=== PATIENT | female | born 1945 | race Caucasian/White ===

== ENCOUNTER 2018-08-18 07:35 | Outpatient (CLI) | payer MEDICARE, OTHER ==
--- NOTE | 2018-08-18 08:59 | MRI ---
Exam: Left hip MRI without IV contrast: HISTORY: Avascular necrosis, hip arthritis, bilateral hip pain FINDINGS: Multiplanar, multisequence MRI examination of the left hip is performed. Marked left hip joint arthrosis with joint space loss and marked subchondral cystic changes of the larios perior acetabulum and superior femoral head. There is some subtle probably reactive marrow signal within the femoral neck. There are some femoral head osteophytes. Mild subchondral cystic changes of the right hip joint and associated joint space loss. Gluteus mediu s and gluteus minimus minimus tendon insertions appear unremarkable. No abnormal signal within the trochanteric bursal region. Common hamstring tendon insertion ranges are unremarkable. IMPRESSION: Left hip joint space narrowing with extensive subchondral cystic changes of the superior acetabulum a s well as the superior femoral head most evident for extensive degenerative subchondral cysts. I feel that these changes would be very unlikely to represent typical avascular necrosis. Right-sided h ip joint arthrosis with minimal subchondral cystic changes but less severe than on the left side. No evidence for other significant acute internal derangement.
--- NOTE | 2018-08-18 09:36 | MRI ---
MRI LUMBAR SPINE WITHOUT CONTRAST: HISTORY: M54.16, lumbar radiculopathy. COMPARISON: Lumbar spine MRI 2016. FINDINGS: No retroperitoneal adenopathy. The aortic contour is nonaneurysmal. No hydronephrosis. Gallbladder is unremarkable. The conus medullaris terminates near the inferior end plate of L1. No marrow infiltrative process. Superior end plate invagination of disk material at L4. Levels are as follows: L1-2: Relatively normal disks. Mild facet arthrosis. No neural foraminal or spinal canal narrowing . L2-3: There is a low-grade circumferential disk bulge worse in the left subarticular and subforamina l zones. Moderate left and right facet arthrosis. Mild bilateral neural foraminal narrowing. L3-4: Advanced degenerative disk space height loss. Circumferential disk-osteophyte complex greates t in the right subarticular and subforaminal zone. Moderate to severe right-sided neural foraminal n arrowing with abutment of the exiting nerve root. Moderate left neural foraminal narrowing. Mild in creased posterior epidural fat. The spinal canal measures approximately 8 mm. L4-5: Circumferential disk height loss with disk-osteophyte complex greatest in the left subarticula r and subforaminal zone. Moderate facet arthrosis. Moderate left-sided neural foraminal narrowing. Mild right-sided neural foraminal narrowing. Spinal canal not narrowed. L5-S1: Mild degenerative disk space height loss. There is an area of susceptibility at the anterior disk. There is an asymmetric left posterior disk bulge. Mild left-sided neural foraminal narrowing . IMPRESSION: Mild to moderate multilevel spondylosis as described. This has minimal progression from 2016. POS: TPC
== END 2018-08-18 07:36 | disposition home or self-care (01) ==
LOC: SCSMRI 07:35
PROVIDERS: ATTEND Anesthesiology Pain Medicine
DX: M47.26 Other spondylosis with radiculopathy, lumbar region (principal); M87.052 Idiopathic aseptic necrosis of left femur; M16.11 Unilateral primary osteoarthritis, right hip
CPT/HCPCS: 72148

== ENCOUNTER 2018-09-14 12:30 | Outpatient (CLI) | payer MEDICARE, OTHER ==
[2018-09-14 15:01] LABS: Bilirubin Negative (Negative); Blood, Urine Negative (Negative); Clarity CLEAR (Clear); Glucose, Urine (Dipstick) Negative (Negative); Leukocyte Trace (Negative); Nitrite Positive (Negative); Protein, Urine (Dipstick) Negative (Neg-Trace); Specific Gravity, Urine 1.014 (1.002-1.036); Urobilinogen 0.2 mg/dL (0.2-1.0); pH, Urine 5.5 (5.0-9.0)
[2018-09-14 15:06] LABS: Bacteria/HPF 4+ HPF (None Seen); Hyaline Casts/LPF 0-3 HYALINE CAST LPF (0-3 Hyaline); Pathc Cast-AUWi Flag 0.27 (0-2.49); Squamous Epithelial 0-3 HPF (0-3)
[2018-09-14 15:17] LABS: RBC/HPF None Seen HPF (0-3)
--- NOTE | 2018-09-20 14:38 | EKG ---
Test Reason : Blood Pressure : / mmHG Vent. Rate : 060 BPM Atrial Rate : 060 BPM P-R Int : 180 ms QRS Dur : 076 ms QT Int : 428 ms P-R-T Axes : 000 042 -04 degrees QTc Int : 428 ms Unusual P axis, possible ectopic atrial rhythm Anteroseptal infarct , age undetermined cannot be excluded Abnormal ECG Confirmed by ANDREWS COLLAZO ([id number]) on 09/20/2018 2:37:47 PM Referred By: LACY Confirmed By:ANDREWS COLLAZO
== END 2018-09-14 12:31 | disposition home or self-care (01) ==
LOC: LABBT 12:30
PROVIDERS: ATTEND Orthopaedic Surgery
DX: Z01.818 Encounter for other preprocedural examination (principal); M16.12 Unilateral primary osteoarthritis, left hip
CPT/HCPCS: 81001; 87077; 87081; 87086; 87186; 93005; 93010

== ENCOUNTER 2018-09-14 13:30 | Inpatient (IN) | payer MEDICARE, OTHER ==
[2018-09-14 12:49] VITALS: BMI 24.6
[2018-09-14 15:02] LABS: #Basophils 0.1 thou/uL (0.0-0.2); #Eosinphils 0.4 thou/uL (0.0-0.7); #Lymphocytes 2.8 thou/uL (1.20-3.40); #Monocytes 0.6 thou/uL (0.11-0.59); #Neutrophils 3.3 thou/uL (1.40-6.50); %Basophils 1.2 % (0.0-1.0); %Lymphocytes 39.5 % (21.0-51.0); %Monocytes 8.1 % (0.0-10.0); %Neutrophils 46.1 % (42.0-75.0); Hemoglobin 14.4 g/dL (12.0-16.0); Mean Corpuscular HGB CONC 33.5 g/dL (32.0-36.0); Mean Corpuscular Hemoglobin 32.2 pg (27.0-31.0); Mean Corpuscular Volume 96.1 fL (78.0-98.0); Platelet Count 234 thou/uL (130-400); RBC Distribution Width 11.9 % (11.5-14.5); Red Blood Cell (RBC) Count 4.47 mill/uL (4.20-5.40); White Blood Cell (WBC) Count 7.1 thou/uL (4.8-10.8)
--- NOTE | 2018-09-14 15:02 | HP ---
HISTORY OF PRESENT ILLNESS: The patient is a 73-year-old female with several year history of progressive left hip pain without injury. The pain has become much worse recently, especially over the past several months. She has groin pain which is worse with weightbearing. She reports a grinding and giving way sensation. She has difficulty getting dressed, getting in and out of a car, walking, and sleeping. She has had no relief with anti-inflammatory medications, lifestyle adjustments, and previous cortisone injections. PAST MEDICAL HISTORY: The patient has history of hypertension, anxiety, reflux, hyperlipidemia, and previous atrial fibrillation treated with medications. She has had no further cardiac problems. She did obtain cardiac clearance prior to vaginal surgery [address] Anaya, since had no further problems and had been totally asymptomatic from a cardiac standpoint. Dr. Mayberry was felt that no further cardiac workup is indicated and she has been seen and cleared for surgery. Past history as noted above. The patient has also had previous hysterectomy, double mastectomy. CURRENT MEDICATIONS: Include; 1. Estriol. 2. Vitamin D. 3. Potassium. 4. Coenzyme Q. 5. Krill oil. 6. Lutein. 7. Turmeric. 8. Vitamin B6. 9. Lysine. 10. Vitamin E. 11. Omeprazole. 12. Lisinopril. ALLERGIES: SHE IS ALLERGIC TO DARVOCET, MYCIN ANTIBIOTICS, SEREVENT DISKUS, RED YEAST RICE, AND CRESTOR. FAMILY HISTORY: Otherwise unremarkable. SOCIAL HISTORY: Otherwise unremarkable. REVIEW OF SYSTEMS: Otherwise unremarkable. PHYSICAL EXAMINATION: GENERAL: Reveals a healthy female. HEENT: Unremarkable. NECK: Supple. CHEST: Clear. HEART: Regular rate and rhythm. ABDOMEN: Soft, nontender. PELVIC: Deferred. RECTAL: Deferred. BREASTS: Deferred. EXTREMITIES: Pertinent findings in the left hip. The left leg is 1 cm short. There is tenderness in the greater trochanter and over the anterior hip. There is a left antalgic gait. There is decreased range of motion of the left hip and groin pain with internal rotation and crepitus with range of motion. NEUROVASCULAR: Intact. Pulses are 1+. IMAGING DATA: MRI scan of the left hip reveal severe degenerative changes with mild degenerative changes of the right hip. X-rays of the left hip reveal severe DJD of the left hip, but no joint space remaining. MRI scan of the lumbar spine reveals [id number] multiple level spondylosis, but no definite nerve root or spinal cord impingement. IMPRESSION: 1. Degenerative arthritis, left hip. 2. History of hypertension. PLAN: Left total hip replacement. The nature of the surgery, length recovery, potential complications such as infection, loss of motion, incomplete relief, neurovascular injury, thromboembolic phenomena, leg-length discrepancy, possible transfusion, need for revision have been discussed in detail. Job ID: [id number]
[2018-09-14 15:08] LABS: INR-International Normal Ratio 0.9; Prothrombin Time 12.5 SEC (12.0-14.7)
[2018-09-14 15:21] LABS: Anion Gap 14 mmol/L (10-20); BUN (Urea Nitrogen) 20 mg/dL (9.8-20.1); Calc. Creatinine Clearance 0 mL/min (70-130); Calcium 9.8 mg/dL (7.8-10.44); Carbon Dioxide 23 mmol/L (23-31); Chloride 107 mmol/L (98-107); Estimated GFR-MDRD 77; Glucose 82 mg/dL (83-110); Potassium 3.7 mmol/L (3.5-5.1); Sodium 140 mmol/L (136-145)
[2018-09-18] MEDS ORDERED: Sodium Chloride 0.9% 100 ML ONE (07:42)
[2018-09-18] MEDS ORDERED: Tranexamic Acid 1,000 MG/10 ML VIAL ONE ×3 (07:42→11:28)
[2018-09-18] MEDS ORDERED: Ampicillin/Sulbactam 1.5 GM in Sodium Chloride 0.9% 100 ML IVPB SCH (07:45)
[2018-09-18] MEDS ORDERED: Midazolam HCl 2 mg/2 ml Vial ONE (08:09)
[2018-09-18] MEDS ORDERED: Fentanyl 100 MCG/2 ML VIAL ONE ×2 (08:09→09:18)
[2018-09-18] MEDS ORDERED: Lidocaine 1.5% w/Epi 1:200K 30 ML VIAL (Epid Use) ONE (08:19)
[2018-09-18] MEDS ORDERED: Scopolamine 1.5 mg/72 hour Patch ONE (08:28)
[2018-09-18] MEDS ORDERED: Bupivacaine 0.25% 10 ML VIAL EPIDURAL PRN ×2 (08:30→11:20)
[2018-09-18] MEDS ORDERED: Ondansetron PF 4 MG/2 ML Vial IVP PRN ×3 (08:30→12:05)
[2018-09-18] MEDS ORDERED: Promethazine HCl 25 MG SUPP PR PRN ×2 (08:30→11:20)
[2018-09-18] MEDS ORDERED: Hydrocerin (Eucerin) Cream 120 gm Jar TOP PRN (08:30)
[2018-09-18] MEDS ORDERED: traMADol HCl 50 MG TAB PO PRN ×3 (08:30→12:05)
[2018-09-18] MEDS ORDERED: Promethazine HCl 25 MG/ML VIAL IM PRN ×3 (08:30→11:20)
[2018-09-18] MEDS ORDERED: diphenhydrAMINE 50 MG/ML VIAL IM PRN ×2 (08:30→11:20)
[2018-09-18] MEDS ORDERED: Naloxone HCl 0.4 mg/ml Vial IV PRN (08:30)
[2018-09-18] MEDS ORDERED: HYDROcodone/Acetaminophen 5/325 mg Tablet PO PRN (08:30)
[2018-09-18] MEDS ORDERED: diphenhydrAMINE 50 MG/ML VIAL IVP PRN ×2 (08:30→11:20)
[2018-09-18] MEDS ORDERED: Naloxone HCl 0.4 mg/ml Vial IVP PRN ×3 (08:30→11:20)
[2018-09-18] MEDS ORDERED: Zolpidem Tartrate 5 MG TAB PO PRN ×3 (08:30→12:05)
[2018-09-18] MEDS ORDERED: Scopolamine 1.5 mg/72 hour Patch TOP SCH (08:45)
[2018-09-18] MEDS ORDERED: Glycopyrrolate 0.2 MG/ML 5 ML SYRINGE ONE (09:15)
[2018-09-18] MEDS ORDERED: PROPOFOL 200 MG/20 ML VIAL ONE (09:15)
[2018-09-18] MEDS ORDERED: PHENYLEPHRINE-NS 100 MCG/ML 10 ML SYRINGE ONE (09:15)
[2018-09-18] MEDS ORDERED: Rocuronium Bromide 10 MG/ML (10ML VIAL) ONE (09:15)
[2018-09-18] MEDS ORDERED: ePHEDrine 50 MG/ML VIAL ONE (09:15)
[2018-09-18] MEDS ORDERED: Dexamethasone 20 MG/5 ML VIAL ONE (09:15)
[2018-09-18] MEDS ORDERED: Lidocaine 1% PF 5 ML VIAL ONE (09:15)
[2018-09-18] MEDS ORDERED: Ondansetron PF 4 MG/2 ML Vial ONE (09:15)
[2018-09-18] MEDS ORDERED: Bupivacaine/Epinephrine 0.25% 30 ML VIAL ONE (09:30)
[2018-09-18] MEDS ORDERED: Tranexamic Acid 1,000 MG in Sodium Chloride 0.9% 100 ML IVPB SCH ×2 (11:15→12:05)
[2018-09-18] MEDS ORDERED: Eucerin (Mineral Oil/Petrolatum,White) 30 gm Jar TOP PRN (11:20)
[2018-09-18] MEDS ORDERED: diphenhydrAMINE 25 MG CAP PO PRN ×2 (11:20→12:05)
[2018-09-18] MEDS ORDERED: Promethazine HCl 25 MG/ML VIAL SLOW IVP PRN ×2 (11:20→12:05)
[2018-09-18] MEDS ORDERED: HYDROmorphone 2 MG/ML VIAL SLOW IVP PRN (11:20)
[2018-09-18] MEDS ORDERED: Ondansetron HCl/PF 4 MG/2 ML Vial IVP PRN (11:20)
[2018-09-18] MEDS ORDERED: Morphine Sulfate 2 MG/ML SYRINGE SLOW IVP PRN (11:20)
[2018-09-18] MEDS ORDERED: Fentanyl 5 mcg/Bup 0.075% Cadd 100 ML EPIDURAL ONE (11:29)
[2018-09-18] MEDS ORDERED: Communication Order-Pharmacy FS SCH ×2 (11:30)
--- NOTE | 2018-09-18 12:04 | RAD ---
LEFT HIP 2 VIEWS: HISTORY: Recent postop total hip arthroplasty FINDINGS: There are postop changes of left hip total arthroplasty in good position and alignment. Soft tissue a ir is present.
[2018-09-18] MEDS ORDERED: HYDROcodone/Acetaminophen 10/325 mg Tablet PO PRN ×2 (12:05)
[2018-09-18] MEDS ORDERED: Ketorolac Tromethamine 30 MG/ML VIAL IVP SCH (12:05)
[2018-09-18] MEDS ORDERED: Fentanyl 100 MCG/2 ML VIAL SLOW IVP PRN ×2 (12:05)
[2018-09-18] MEDS ORDERED: Acetaminophen 325 MG TAB PO PRN (12:05)
[2018-09-18] MEDS: Ketorolac Tromethamine 30 MG/ML VIAL IVP SCH ×3 (14:36→23:32)
[2018-09-18] MEDS: Sodium Chloride 0.9% 1,000 ML IV SCH ×2 (14:36→21:21)
[2018-09-18] MEDS: Ampicillin/Sulbactam 1.5 GM in Sodium Chloride 0.9% 100 ML IVPB SCH ×3 (14:47→22:39)
[2018-09-18] MEDS: diphenhydrAMINE 25 MG CAP PO PRN ×2 (14:51→18:26)
--- NOTE | 2018-09-18 17:18 | OP ---
DATE OF PROCEDURE: 09/18/2018 NEWS VIDEO EDITOR: Sawyer Macario PA-C ANESTHESIA: General plus epidural. PREOPERATIVE DIAGNOSIS: Degenerative arthritis, left hip. POSTOPERATIVE DIAGNOSIS: Degenerative arthritis, left hip. PROCEDURE PERFORMED: Left total hip replacement with uncemented [place] Tritanium acetabular component 54 mm with X3 polyethylene insert and uncemented [place] Accolade femoral stem size #1 with 132-degree neck angle trunnion and standard neck length, 36 mm metal head. DESCRIPTION OF PROCEDURE: After report of satisfactory anesthesia was induced in supine position, sequential compression device was placed on the nonoperative leg throughout the procedure. The patient was placed in a lateral decubitus position. This position held with hip positioning device. The patient was then prepped and draped in routine sterile fashion. The hip was approached through a lateral curvilinear incision, centered over the greater trochanter, carried down to subcutaneous tissues and bleeding points controlled with Bovie cautery. IT band and gluteal fascia were split in line with the skin incision. Direct lateral approach to the hip joint was accomplished by dividing the anterior third of the gluteus medius tendons with Bovie cautery reflecting this single flap anteromedially along with the vastus lateralis. Anterior capsulectomy was performed and the hip dislocated anteriorly. There was marked degenerative arthritis of the hip with large area of exposed bone. Femoral neck was osteotomized with an oscillating saw using a trial prosthesis as a guide. Acetabular exposure was clean of all soft tissue debris and rim osteophytes. The acetabulum was then reamed in sequence with power reamers down to bleeding subchondral bone to a total of 53 mm. It was felt that a 54 mm Tritanium outer shell could be placed in a press-fit fashion. The permanent component was then hammered in position. There was good position and good stability. The permanent 36 mm X3 polyethylene liner was then snapped into position and the proximal femur was exposed. It was opened with a box osteotome and rasped in sequence to accept a #1 Accolate femoral rasp. Trial reduction with a 130-degree neck angle trunnion, and a standard neck length 36 mm head gave appropriate size, fit, stability, and correction of leg length discrepancy. The hip was again dislocated anteriorly. The hip was copiously irrigated. The permanent #1 Accolate femoral stem was then hammered in position. There was again good fit and stability of the component. The standard neck length 36 mm head was then placed on the trunnion, and the hip again reduced. It was found to be stable. The hip was again copiously irrigated with pulsatile lavage. The abductors were repaired with interrupted #2 Vicryl. The IT band and gluteal fascia were repaired with interrupted #2 Vicryl and a running #2 Quill. Subcutaneous tissues were closed with running 0 Quill suture. The skin was closed with running subcuticular 3-0 Monoderm and SurgiSeal skin adhesive. A sterile dressing was applied. The patient turned in supine position and a pillow was placed between her legs. Sequential compression device was applied to the operative leg, and she was awakened, taken to recovery room in stable condition. There were no apparent intraoperative complications. ESTIMATED BLOOD LOSS: 200 mL. Job ID: [id number]
[2018-09-18] MEDS: CEFAZOLIN 2 GM in Premix Bag 1 BAG IVPB SCH (17:27)
--- NOTE | 2018-09-18 19:09 | PDOC.FPRHP ---
- History of Present Illness Chief Complaint: Medical management consult History of Present Illness: 73 yo female admitted for left hip orthoplasty on 09/18/18 2/2 severe osteoarthritis. POD#1. Patient reports a past medical history of HTN, HLD, and recurrent UTIs. Patient states she feels she is starting to have symptoms of a UTI. States she has been treated. Underwent surgery well. Reports pain is controlled. Mild nausea but has resolved. Tolerating PO now. Has great outlook for recovery. PCP: Dr. Mayberry Code status: Full - Allergies/Adverse Reactions Allergies Allergy/AdvReac Type Severity Reaction Status Date / Time meperidine HCl [From Demerol] Allergy Verified 09/18/18 12:25 rosuvastatin [From Crestor] Allergy chest Verified 09/18/18 12:25 pain, brain fog, confusion, depression - Home Medications Medication Instructions Recorded Confirmed Type Lisinopril 10 mg PO HS 08/15/13 09/18/18 History Acetaminophen [8Hr Arthritis Pain] 1,300 mg PO TID PRN 09/14/18 09/18/18 History Ascorbic Acid [Vitamin C] 1,000 mg PO DAILY 09/14/18 09/18/18 History Biotin 2,500 mcg PO DAILY 09/14/18 09/18/18 History Cholecalciferol (Vitamin D3) 2,000 unit PO DAILY 09/14/18 09/18/18 History [Vitamin D3] Cyanocobalamin (Vitamin B-12) 2,000 mcg PO DAILY 09/14/18 09/18/18 History [Vitamin B-12] Estradiol [Elestrin] 4 pump TOP ASDIR 09/14/18 09/18/18 History Fish Oil/Borage/Flax/Om3,6,9 1 1,200 mg PO DAILY 09/14/18 09/18/18 History [Eugene 3-6-9 1,200 mg Softgel] Ibuprofen 400 mg PO Q6HR PRN 09/14/18 09/18/18 History Omeprazole 1 tab PO QPM 09/14/18 09/18/18 History Polyethylene Glycol 3350 [Miralax] 17 gm PO DAILY 09/14/18 09/18/18 History Psyllium Husk (With Sugar) [Fiber 1 tablespoon PO DAILY 09/14/18 09/18/18 History Therapy] Ubidecarenone [CoQ-10] 400 mg PO DAILY 09/14/18 09/18/18 History Vitamin E Mixed [Vitamin E] 1,000 unit PO DAILY 09/14/18 09/18/18 History - History pmhx: HTN, HLD (dietary treatment only), Recurrent UTIs (has ppx that she uses) , GERD, hx of endometriosis, Seasonal allergies. sxhx: BTL. Bilateral masectomy and hystorectomy with BSO with follow up breast reconstruction. Complicated by implant rupture and bad scarring. Pelvic floor surgery for cystocele and rectocele. Cataract surgery. Cholecystectomy. Tonsillectomy. sohx: Denies tobacco and drug use. Alcohol use - 1 glass of wine per day. Occasionaly 2. famhx: Breast Cancer - mother, aunt, grandmother. COPD - mother, father, sister , aunt. all: Statin/Red Yeast Rice - cognitive clouding, hair loss, depression. Meperidine - severe pain - Review of Systems General: denies: fever/chills Eyes: denies: vision changes ENT: reports: nasal congestion Respiratory: reports: congestion. denies: cough Cardiovascular: denies: chest pain, palpitation Gastrointestinal: denies: nausea, vomiting Genitourinary: denies: dysuria Musculoskeletal: reports: other (left hip pain) - Vital signs BP: 119/56 HR: 97 RR: 18 Wt: 57kg TEMP 97.5 96% on RA - Physical Exam Constitutional: NAD HEENT: EOMI, grossly normal vision Heart: RRR, normal S1/S2 Lungs: CTAB, no wheezing Abdomen: soft, non-tender Musculoskeletal: normal tone Neurological: no focal deficit, normal sensation Psychiatric: normal mood and affect, intact recent and remote memory FMR H&P: Results - Labs Result Diagrams: 09/14/18 14:42 09/14/18 14:42 Lab results: WBC 7.1 thou/uL (4.8-10.8) 09/14/18 14:42 Hgb 14.4 g/dL (12.0-16.0) 09/14/18 14:42 Hct 43.0 % (36.0-47.0) 09/14/18 14:42 MCV 96.1 fL (78.0-98.0) 09/14/18 14:42 Plt Count 234 thou/uL (130-400) 09/14/18 14:42 Neutrophils % 46.1 % (42.0-75.0) 09/14/18 14:42 Sodium 140 mmol/L (136-145) 09/14/18 14:42 Potassium 3.7 mmol/L (3.5-5.1) 09/14/18 14:42 Chloride 107 mmol/L (98-107) 09/14/18 14:42 Carbon Dioxide 23 mmol/L (23-31) 09/14/18 14:42 BUN 20 mg/dL (9.8-20.1) 09/14/18 14:42 Creatinine 0.74 mg/dL (0.6-1.1) 09/14/18 14:42 Glucose 82 mg/dL (83-110) L 09/14/18 14:42 Calcium 9.8 mg/dL (7.8-10.44) 09/14/18 14:42 FMR H&P: A/P - Problem List (1) Presence of left artificial hip joint Current Visit: Yes Status: Acute Code(s): Z96.642 - PRESENCE OF LEFT ARTIFICIAL HIP JOINT (2) Hypertension Current Visit: Yes Status: Acute Code(s): I10 - ESSENTIAL (PRIMARY) HYPERTENSION (3) Hyperlipemia Current Visit: Yes Status: Acute Code(s): E78.5 - HYPERLIPIDEMIA, UNSPECIFIED (4) History of recurrent UTIs Current Visit: Yes Status: Acute Code(s): Z87.440 - PERSONAL HISTORY OF URINARY (TRACT) INFECTIONS - Plan #left hip arthroplasty -Dr. Lewis is managing -prn pain control norco -continue with PT #HTN -continue with home lisinopril #HLD -patient reports this is well controlled with diet restriction Disposition/LOS: Patient admitted to surgical floor, continue with PT for left hip; discharge pending Dr. Lewis's recommendations. Patient is stable in regards to BP and other medical problems. If she begins to have UTI symptoms, we will check UA. We will continue to follow. PCP: Dr. Mayberry PPX: protonix and SCD FMR H&P: Upper Level - Plan Date/Time: 09/18/18 1906 I, [], have evaluated this patient and agree with findings/plan as outlined by electrical intern resident. Pertinent changes/additions are listed here. Addendum - Attending - Attending Attestation Date/Time: 09/18/182045 I personally evaluated the patient and discussed the management with Dr. Christopher I agree with the History, Examination, Assessment and Plan documented above with any addition or exceptions noted below. Patient without complaints. Stable. Doing well. Continue home meds. Adjust as tolerated/needed. Sanjuana
[2018-09-18] MEDS ORDERED: Vancomycin HCl 1 GM in Premix Bag 1 BAG IVPB SCH (21:00)
[2018-09-18] MEDS: Lisinopril 10 MG TAB PO SCH (21:20)
[2018-09-19] MEDS: CEFAZOLIN 2 GM in Premix Bag 1 BAG IVPB SCH (01:46)
[2018-09-19] MEDS: Fentanyl 5 mcg/Bup 0.075% Cadd 100 ML EPIDURAL SCH ×2 (04:18→18:24)
[2018-09-19 04:42] LABS: Hemoglobin 11.1 g/dL (12.0-16.0); Mean Corpuscular HGB CONC 33.6 g/dL (32.0-36.0); Mean Corpuscular Hemoglobin 32.7 pg (27.0-31.0); Mean Corpuscular Volume 97.5 fL (78.0-98.0); Mean Platelet Volume 8.7 fL (7.4-10.4); Platelet Count 177 thou/uL (130-400); RBC Distribution Width 11.7 % (11.5-14.5); White Blood Cell (WBC) Count 9.3 thou/uL (4.8-10.8)
[2018-09-19] MEDS: Ampicillin/Sulbactam 1.5 GM in Sodium Chloride 0.9% 100 ML IVPB SCH ×4 (04:58→21:37)
[2018-09-19] MEDS ORDERED: Morphine 2 MG/ML SYRINGE SLOW IVP PRN (06:03)
[2018-09-19] MEDS: Ketorolac Tromethamine 30 MG/ML VIAL IVP SCH ×4 (06:43→23:28)
[2018-09-19] MEDS: Aspirin 81 mg Enteric Coated Tablet PO SCH ×2 (08:28→19:54)
[2018-09-19] MEDS: Sodium Chloride 0.9% 1,000 ML IV SCH ×2 (08:28→16:00)
[2018-09-19] MEDS: Senokot S 8.6-50 MG TAB PO SCH ×2 (08:29→19:54)
[2018-09-19] MEDS: Multivitamin W/ Minerals 1 TAB PO SCH (08:29)
[2018-09-19] MEDS: Cyanocobalamin (Vitamin B-12) 1,000 MCG TAB PO SCH (08:29)
[2018-09-19] MEDS: Ferrous Gluconate 324 MG TAB PO SCH ×2 (08:29→15:19)
[2018-09-19] MEDS: Ubidecarenone 50 MG CAP PO SCH (08:30)
[2018-09-19] MEDS: Fish Oil 1,000 MG CAP PO SCH (08:30)
[2018-09-19] MEDS: HYDROcodone/Acetaminophen 5/325 mg Tablet PO PRN ×2 (08:49→13:40)
--- NOTE | 2018-09-19 09:11 | PDOC.FM ---
- Subjective Subjective: SOHAIL overnight. Pt reports pain well controlled. No flatus or BM yet. Takes miralax and fiber at home daily. - Objective MAR Reviewed: Yes Vital Signs & Weight: Vital Signs (12 hours) Temp Pulse Resp BP BP BP Pulse Ox 09/19/18 07:37 99.0 F 87 16 131/65 95 09/19/18 04:00 98.2 F 72 16 125/66 95 09/18/18 23:55 98.2 F 75 16 124/63 96 09/18/18 21:20 117/63 Weight Weight 57.153 kg I&O: 09/18/18 09/19/18 09/20/18 06:59 06:59 06:59 Intake Total 3280 Output Total 2450 Balance 830 Result Diagrams: 09/19/18 04:13 09/14/18 14:42 Phys Exam - Physical Examination Constitutional: NAD HEENT: PERRLA, moist MMs, sclera anicteric Neck: no nodes, no JVD Respiratory: no wheezing, no rales, no rhonchi, clear to auscultation bilateral Cardiovascular: RRR, no significant murmur, no rub Gastrointestinal: soft, non-tender, no distention, positive bowel sounds Musculoskeletal: no edema, pulses present s/p hip arthroplasty Neurological: non-focal, normal sensation Lymphatic: no nodes Psychiatric: normal affect Skin: no rash, cap refill <2 seconds Dx/Plan (1) Presence of left artificial hip joint Code(s): Z96.642 - PRESENCE OF LEFT ARTIFICIAL HIP JOINT Status: Acute (2) History of recurrent UTIs Code(s): Z87.440 - PERSONAL HISTORY OF URINARY (TRACT) INFECTIONS Status: Acute (3) Hyperlipemia Code(s): E78.5 - HYPERLIPIDEMIA, UNSPECIFIED Status: Acute (4) Hypertension Code(s): I10 - ESSENTIAL (PRIMARY) HYPERTENSION Status: Acute - Plan Plan: #left hip arthroplasty -Dr. Lewis is managing -prn pain control per ortho -continue with PT #HTN -continue with home lisinopril #HLD -patient reports this is well controlled with diet restriction # recurrent UTI - pt on abx for surgery that should cover. Also has indwelling salcido, possibly 2 /2 irritation - symptoms improving, UA if worsening Dsipo: stable, pain maange per ortho. Cont home medications. Addendum - Attending - Attending Attestation Date/Time: 09/19/18 7446 I personally evaluated the patient and discussed the management with Dr. Mena. I agree with the History, Examination, Assessment and Plan documented above with any addition or exceptions noted below. Pain well controlled. No f/c. No n/v. No cp/sob.
[2018-09-19] MEDS: diphenhydrAMINE 25 MG CAP PO PRN ×2 (10:28→13:40)
[2018-09-19] MEDS ORDERED: Enoxaparin Sodium 30 MG/0.3 ML SYRINGE SC SCH ×2 (13:00→21:00)
--- NOTE | 2018-09-19 13:04 | PRG ---
DATE OF SERVICE: 09/19/2018 SUBJECTIVE: Cierra is a 73-year-old white female, postop day 1 from left total hip arthroplasty. She has no complaints of pain, and she is quite comfortable and in good spirits this morning. OBJECTIVE: VITAL SIGNS: Temperature 99, pulse 87, respiratory rate 16 and unlabored, and blood pressure is 131/65. GENERAL: She is alert and oriented to person, place, time, and situation. Grossly nonfocal. Appropriate with examiner. EXTREMITIES: Incision is clean. No erythema. No leg length discrepancy is identified. There is no shortening or internal rotation and she is neurovascularly intact in both lower extremities. LABORATORY DATA: Hemoglobin and hematocrit 11.1 and 33.2. Chem-7 is within normal limits. IMPRESSION: 1. A 73-year-old white female, postop day 1 left total hip arthroplasty. 2. Mild postoperative asymptomatic anemia. PLAN: Continue current care. Recheck tomorrow, probable discharge at that time. Job ID: [id number]
[2018-09-19] MEDS: Morphine 2 MG/ML SYRINGE SLOW IVP PRN (15:19)
[2018-09-19] MEDS: Lisinopril 10 MG TAB PO SCH (19:53)
[2018-09-20] MEDS: Ampicillin/Sulbactam 1.5 GM in Sodium Chloride 0.9% 100 ML IVPB SCH ×3 (04:40→18:18)
[2018-09-20] MEDS: Sodium Chloride 0.9% 1,000 ML IV SCH ×2 (04:41→14:06)
[2018-09-20] MEDS: Ketorolac Tromethamine 30 MG/ML VIAL IVP SCH (05:29)
[2018-09-20 07:55] VITALS: TEMP 99.2
[2018-09-20] MEDS: Senokot S 8.6-50 MG TAB PO SCH (08:06)
[2018-09-20] MEDS: Ferrous Gluconate 324 MG TAB PO SCH ×2 (08:06→18:19)
[2018-09-20] MEDS: Ubidecarenone 50 MG CAP PO SCH (08:06)
[2018-09-20] MEDS: Fish Oil 1,000 MG CAP PO SCH (08:06)
[2018-09-20] MEDS: Cyanocobalamin (Vitamin B-12) 1,000 MCG TAB PO SCH (08:07)
[2018-09-20] MEDS: Aspirin 81 mg Enteric Coated Tablet PO SCH (08:07)
[2018-09-20] MEDS: Multivitamin W/ Minerals 1 TAB PO SCH (08:07)
[2018-09-20] MEDS ORDERED: Polyethylene Glycol 3350 17 GM Packet PO SCH ×2 (08:45→09:00)
[2018-09-20] MEDS ORDERED: Metamucil PACK PO SCH ×2 (08:45→09:00)
--- NOTE | 2018-09-20 09:02 | PDOC.FM ---
- Subjective Subjective: SOHAIL overnight. Pt reports she feels good and pain is better controlled. She is participating in PT activities. No BM or flatus, does take home miralax, will start. She denies CP, SOB, wheezing. No NVDC. Is using incentive spirometer - Objective MAR Reviewed: Yes Vital Signs & Weight: Vital Signs (12 hours) Temp Pulse Resp BP BP Pulse Ox 09/20/18 08:46 93 L 09/20/18 07:54 99.2 F 98 15 163/74 H 09/20/18 04:26 99.5 F 85 16 139/64 90 L 09/19/18 23:11 99.6 F 88 16 138/55 L 97 Weight Admit Weight 57.153 kg Weight 57.153 kg I&O: 09/19/18 09/20/18 09/21/18 06:59 06:59 06:59 Intake Total 3280 2097 Output Total 2450 2650 Balance 830 -553 Result Diagrams: 09/19/18 04:13 09/14/18 14:42 Phys Exam - Physical Examination Constitutional: NAD HEENT: PERRLA, sclera anicteric Neck: no nodes, no JVD, supple Respiratory: no wheezing, no rales, no rhonchi, clear to auscultation bilateral Cardiovascular: RRR, no significant murmur, no rub Gastrointestinal: soft, non-tender, no distention, positive bowel sounds ( sluggish) Musculoskeletal: no edema, pulses present Neurological: non-focal, moves all 4 limbs Psychiatric: normal affect Skin: no rash, cap refill <2 seconds Dx/Plan (1) Presence of left artificial hip joint Code(s): Z96.642 - PRESENCE OF LEFT ARTIFICIAL HIP JOINT Status: Acute (2) History of recurrent UTIs Code(s): Z87.440 - PERSONAL HISTORY OF URINARY (TRACT) INFECTIONS Status: Acute (3) Hyperlipemia Code(s): E78.5 - HYPERLIPIDEMIA, UNSPECIFIED Status: Acute (4) Hypertension Code(s): I10 - ESSENTIAL (PRIMARY) HYPERTENSION Status: Acute - Plan Plan: #left hip arthroplasty -per ortho #HTN -continue with home lisinopril - one elevated pressure - possibly 2/2 pain vs agitation, no adjustment necessary #HLD -patient reports this is well controlled with diet restriction # recurrent UTI - no symptoms Dsipo: stable, pain manage per ortho. Cont home medications. Cont IS. Addendum - Attending - Attending Attestation Date/Time: 09/20/18 1240 I personally evaluated the patient and discussed the management with Dr. Mena. I agree with the History, Examination, Assessment and Plan documented above with any addition or exceptions noted below.
[2018-09-20] MEDS: diphenhydrAMINE 25 MG CAP PO PRN (10:26)
[2018-09-20] MEDS: Morphine 2 MG/ML SYRINGE SLOW IVP PRN ×2 (10:26→14:06)
[2018-09-20 11:52] VITALS: BP 165/80
[2018-09-20] MEDS: HYDROcodone/Acetaminophen 5/325 mg Tablet PO PRN ×2 (12:46→15:47)
[2018-09-20] MEDS ORDERED: Enoxaparin Sodium 30 MG/0.3 ML SYRINGE SC SCH (21:00)
[2018-09-25] MEDS ORDERED: ESTRADIOL TOP SCH (09:00)
== END 2018-09-20 16:02 | disposition home or self-care (01) | DRG 470 ==
LOC: SJJU 09-18 06:47
PROVIDERS: ADMIT Orthopaedic Surgery; ATTEND Orthopaedic Surgery
PROC: 0SRB0JZ Replacement of Left Hip Joint with Synthetic Substitute, Open Approach (ICD-10-PCS; principal; 2018-09-18)
DX: M16.11 Unilateral primary osteoarthritis, right hip (principal); D62 Acute posthemorrhagic anemia; I10 Essential (primary) hypertension; F41.9 Anxiety disorder, unspecified; K21.9 Gastro-esophageal reflux disease without esophagitis; E78.5 Hyperlipidemia, unspecified; I48.91 Unspecified atrial fibrillation; Z79.899 Other long term (current) drug therapy; Z88.8 Allergy status to other drugs, medicaments and biological substances; Z91.048 Other nonmedicinal substance allergy status; Z87.440 Personal history of urinary (tract) infections
CPT/HCPCS: 36415; 80048; 85025; 85027; 85610; 86850; 86900; 86901; C1776; J0295; J0690; J1100; J1200; J1650; J1885; J2001; J2250; J2270; J2405; J2704; J3010; J3370; J3490; Q0163

== ENCOUNTER 2018-12-01 13:12 | Outpatient (CLI) | payer MEDICARE, OTHER ==
--- NOTE | 2018-12-01 16:27 | BD ---
DEXA BONE DENSITOMETRY: (Dual energy X-ray Absorptiometry) DATE: 12/01/18 HISTORY: 73-year-old white female for a follow-up, age-related postmenopausal, osteoporosis screening examinat ion. Ht. 60 inches. Wt. 126 lb. Age of menopause: 36 years. COMPARISON: 02/08/2002 FINDINGS: The bone mineral density (BMD) is given in grams per square centimeter (g/cm2): LUMBAR SPINE: BMD(g/cm2) T-score Z-score L1: 0.877 -1.0 1.0 L2: 0.902 -1.1 1.1 L3: 1.073 -0.1 2.3 L4: 1.217 1.4 3.8 Total: 1.019 -0.3 2.0 Change in BMD compared to previous DEXA: -5.0% HIP: Femoral neck: 0.726 -1.1 0.8 Total: 0.978 0.3 1.9 Change in BMD compared to previous DEXA: Information not available. FRAX WHO Fracture Risk Assessment Tool: 10 Year Fracture Risk * Major osteoporotic fracture: 9.7% Hip fracture: 1.3% Reported Risk Factors: US(), Neck BMD=0.726, BMI=24.6 * Fracture probability is calculated for an untreated patient. Fracture probability may be lower if the patient has received treatment. IMPRESSION: 1) The mean bone mineral density of the lumbar spine is normal. Fracture risk is not increased. 2) The bone mineral density of the femoral neck is osteopenic. Fracture risk is increased. GENEVA Davis POS: VERONICA
--- NOTE | 2018-12-01 16:31 | MMO ---
Bilateral MAMMO Bilat Screen DDI+SHRAVAN. CLINICAL HISTORY: Patient is 73 years old and is seen for screening. The patient has the following family history of breast cancer: maternal grandmother; maternal aunt; mother and sister. The patient has no personal history of cancer. The patient has a history of bilateral Implants in 2003 - SALINE, bilateral Implants in 1980 - SILICONE and bilateral Explantation in 2003. VIEWS: The views performed were: bilateral craniocaudal with tomosynthesis; bilateral mediolateral oblique with tomosynthesis; and bilateral Implant displaced. FILMS COMPARED: The present examination has been compared to a prior imaging study performed at [facility] on 11/24/2012. MAMMOGRAM FINDINGS: There are scattered fibroglandular densities. There are benign appearing calcifications seen in both breasts. There are no suspicious masses, suspicious calcifications, or new areas of architectural distortion. IMPRESSION: THERE IS NO MAMMOGRAPHIC EVIDENCE OF MALIGNANCY. A ROUTINE FOLLOW-UP MAMMOGRAM IN 1 YEAR IS RECOMMENDED. THE RESULTS OF THIS EXAM WERE SENT TO THE PATIENT. ACR BI-RADS Category 2 - Benign finding MAMMOGRAPHY NOTE: 1. A negative mammogram report should not delay a biopsy if a dominant of clinically suspicious mass is present. 2. Approximately 10% to 15% of breast cancers are not detected by mammography. 3. Adenosis and dense breasts may obscure an underlying neoplasm. Reported by: ELIEZER JOHNSTON MD Electonically Signed: [id number]
== END 2018-12-01 13:13 | disposition home or self-care (01) ==
LOC: BICMAMMO 13:12
PROVIDERS: ATTEND Internal Medicine
DX: Z12.31 Encounter for screening mammogram for malignant neoplasm of breast (principal); Z13.820 Encounter for screening for osteoporosis; M85.859 Other specified disorders of bone density and structure, unspecified thigh; Z78.0 Asymptomatic menopausal state; Z80.3 Family history of malignant neoplasm of breast; Z98.82 Breast implant status
CPT/HCPCS: 77063; 77067; 77080

== ENCOUNTER 2020-02-20 14:56 | Outpatient (CLI) | payer MEDICARE, OTHER ==
--- NOTE | 2020-02-20 15:57 | MMO ---
Bilateral MAMMO Bilat Diag [facility]. CLINICAL HISTORY: Patient is 74 years old and is seen for diagnostic exam. The patient has the following family history of breast cancer: maternal grandmother; maternal aunt and sister. The patient has no personal history of cancer. The patient has a history of bilateral Implants in 2003 - SALINE, bilateral Implants in 1980 - SILICONE, bilateral Mastectomy in 1980 - DUE TO FAMILY HX OF CANCER - NIPPLE SPARING and bilateral Explantation in 2003. VIEWS: The views performed were: bilateral craniocaudal; bilateral mediolateral oblique; bilateral mediolateral; and bilateral Implant displaced with tomosynthesis. FILMS COMPARED: The present examination has been compared to prior imaging studies performed at [facility] on 12/01/2018 and 02/20/2020, and at [facility] on 11/24/2012. This study has been interpreted with the assistance of computer-aided detection. MAMMOGRAM FINDINGS: There are scattered fibroglandular densities. Finding 1: There are calcified implants seen in both breasts. Finding 2: There are no mammographic or sonographic abnormalities in the area of palpable concern. The patient is referred back to her clinician. Negative imaging findings should not preclude biopsy if clinical findings are suspicious. There are no suspicious masses, suspicious calcifications, or new areas of architectural distortion. IMPRESSION: FINDING 2: THERE ARE NO MAMMOGRAPHIC ABNORMALITIES IN THE AREA OF PALPABLE CONCERN. THE PATIENT IS REFERRED BACK TO HER CLINICIAN. NEGATIVE IMAGING FINDINGS SHOULD NOT PRECLUDE BIOPSY IF CLINICAL FINDINGS ARE SUSPICIOUS. THE RESULTS OF THIS EXAM WERE SENT TO THE PATIENT. ACR BI-RADS Category 2 - Benign finding MAMMOGRAPHY NOTE: 1. A negative mammogram report should not delay a biopsy if a dominant of clinically suspicious mass is present. 2. Approximately 10% to 15% of breast cancers are not detected by mammography. 3. Adenosis and dense breasts may obscure an underlying neoplasm. Reported by: BEAU LYN MD Electonically Signed: [id number]
--- NOTE | 2020-02-20 16:03 | ULT ---
EXAM: US Breast Limited Rt PROVIDED CLINICAL HISTORY: Right breast palpable abnormality COMPARISON: Concurrently performed diagnostic mammogram FINDINGS: Limited sonographic interrogation was performed of the right breast in the region of palpable concern . The sonographic appearance of the breast tissue in this region is normal. IMPRESSION: No sonographic abnormality is evident in the region of clinical concern. Negative imaging findings sh ould not preclude further evaluation of a clinically suspicious finding. Patient is referred back to her clinician. BI-RADS 2 -- benign findings
== END 2020-02-20 14:57 | disposition home or self-care (01) ==
LOC: BICMAMMO 14:56
PROVIDERS: ATTEND Internal Medicine
DX: N63.10 Unspecified lump in the right breast, unspecified quadrant (principal); Z90.13 Acquired absence of bilateral breasts and nipples
CPT/HCPCS: 76642; 77066; G0279